=== PATIENT | male | born 1960 | race Caucasian/White ===

== ENCOUNTER 2024-08-18 03:32 | Emergency (ER) | payer OTHER, SELFPAY ==
[2024-08-18 03:46] VITALS: BP 170/98; PULSE 110; RESP 20; TEMP 36.6; O2SAT 93; BMI 25.8
[2024-08-18 04:27] LABS: Basophils # 0.1 10^3/uL (0.0-0.1); Basophils % 0.7 %; Eosinophils # 0.3 10^3/uL (0.0-0.8); Eosinophils % 3.6 %; Hematocrit 38.9 % (37-53); Lymphocytes # 2.3 10^3/uL (0.8-4.8); Lymphocytes % 24.7 %; Mean Corpuscular Hemoglobin 36.4 pg (27-33); Mean Platelet Volume 9.6 fL (7.4-10.4); Monocytes # 1.1 10^3/uL (0.2-0.9); Monocytes % 11.1 %; Neutrophils # 5.62 10^3/uL (1.8-7.7); Neutrophils % 59.7 %; Nucleated Red Blood Cells % 0 %; Platelet Count 152 10^3/cmm (157-399); Red Blood Count 3.74 10^6/uL (3.85-5.65); Red Cell Distribution Width 13.1 % (12.1-15.1); White Blood Count 9.43 10^3/uL (3.29-11.43)
[2024-08-18 04:45] LABS: Alanine Aminotransferase 47 U/L (0-41); Albumin Level 3.1 g/dL (3.5-5.2); Alkaline Phosphatase 178 U/L (40-130); Anion Gap 15.7 (5-19); Aspartate Amino Transferase 162 U/L (0-40); Blood Urea Nitrogen 4 mg/dL (8-23); Calcium 8.3 mg/dL (8.5-10.5); Carbon Dioxide 24 mmol/L (22-29); Chloride 101 mmol/L (98-107); Creatinine Clr Calc Pharmacy 129.7913; Globulin 4.2 g/dL (1.3-4.6); Glomerular Filtration Rate 136.5 mL/min (90-130); Glucose 121 mg/dL (65-115); Lipase 93 U/L (13-60); Osmolality Calculated 282 mOsm/kg (285-295); Potassium 3.7 mmol/L (3.5-5.1); Sodium 137 mmol/L (136-145); Total Bilirubin 1.7 mg/dL (0.15-1.2); Total Protein 7.3 g/dL (6.6-8.7)
[2024-08-18 05:04] LABS: INR 1.55 (0.8-1.2)
[2024-08-18 05:20] VITALS: BP 137/92; PULSE 107; RESP 17; RESP 18; O2SAT 95
[2024-08-18] MEDS: morphine 4 mg/mL SDV 1 mL IVP (05:20)
[2024-08-18] MEDS: ondansetron 2 mg/ML SDV 2 mL 4 MG IVP (05:20)
[2024-08-18 05:45] LABS: Ammonia 50 umol/L (16-60)
[2024-08-18 05:50] VITALS: BP 122/68; PULSE 113; RESP 15; O2SAT 95
[2024-08-18 06:20] VITALS: BP 136/73; PULSE 102; RESP 17; O2SAT 90
--- NOTE | 2024-08-18 06:40 | ED_ITS ---
HPI - Abdominal Pain 2 General: Chief Complaint: Abdominal Pain Stated Complaint: SOB pain bloating prior parensentisis Time Seen by Provider: 08/18/24 04:19 History of Present Illness: 64-year-old male with a history of chron ic liver disease presenting with abdominal bloating, pain. No fever. No vomiting. He had a first paracentesis 3 weeks ago at [facility]. He was significantly improved with the symptoms following that. He is hoping for another paracentesis. Related Data Previous Rx's Medication Instructions Recorded furosemide 40 mg tablet 40 mg PO DAILY #7 tabs 08/18/24 hydrocodone 5 mg-acetaminophen 325 1 tab PO Q8H PRN pain #9 tabs 08/18/24 mg tablet Physical Exam 2 Const: COMMON NORMALS: no acute distress GENERAL APPEARANCE: cooperative; not ill appearing and not frail appearing HENMT: COMMON NORMALS: normocephalic, atraumatic and Normal external nose present HEAD & SCALP: normocephalic and atraumatic FACE & SINUS: normal facial exam and face symmetric NOSE: Normal external nose present Eye: COMMON NORMALS: Equal, round and reactive pupils present and EOMs intact bilaterally PUPIL: Yes Equal, round and reactive pupils present Neck/C-Spine: GENERAL: Yes trachea midline Chest: CHEST: Yes Symmetrical chest wall rise Resp: COMMON NORMALS: normal respiratory effort, No retractions, No use of accessory muscles and clear to auscultation bilaterally AUSCULTATION: clear to auscultation bilaterally Cardio: COMMON NORMALS: regular rate and regular rhythm RATE: regular rate RHYTHM: regular rhythm GI: INSPECTION: Yes abdominal distension PALPATION: Yes Tenderness to palpation present (GI) (diffuse) and No Guarding due to palpation present (GI) Extremity: COMMON NORMALS: no pedal edema Neuro: DENA COMA SCALE: document GCS findings [place] coma scale eye opening: Spontaneous Dena coma scale verbal response: Orientated [place] coma scale motor response: Obey commands [place] coma scale total score: 15 S ENSORY EXAM: Yes extremities (intact) Psych: COMMON NORMALS: speech normal SPEECH: Yes normal speech Skin: COMMON NORMALS: no rashes or lesions noted GENERAL SKIN EXAM: no rashes or lesions noted Course 2 Vital Signs: Vital signs: Vital Signs Temperature 98 F 08/18/24 03:46 Pulse Rate 101 H 08/18/24 07:26 Respiratory Rate 17 08/18/24 06:20 Blood Pressure 122/76 08/18/24 07:26 Pulse Oximetry 98 08/18/24 07:26 MDM - Abdominal Pain Medical Decision Making This patient has been on exam. He is mildly tender. He has white blood cell count is 9.4. Platelet count is 152. Laboratories otherwise not remarkable. Lipase is minimally elevated at 93. We do not do nonemergent paracentesis on the weekend here. We have no interventional radiology. The patient will be set up for an outpatient paracentesis. Case management has been asked to coordinate. In the meantime, he will return for any worsening symptoms. Will control his pain and nausea. Lab Data 08/18/24 04:02 08/18/24 04:02 Labs/Radiology: Laboratory Results WBC 9.43 10^3/uL (3.29-11.43) 08/18/24 04:02 RBC 3.74 10^6/uL (3.85-5.65) L 08/18/24 04:02 Hgb 13.60 g/dL (11.27-16.99) 08/18/24 04:02 Hct 38.9 % (37-53) 08/18/24 04:02 MCV 104.0 fl (82-101) H 08/18/24 04:02 MCH 36.4 pg (27-33) H 08/18/24 04:02 MCHC 35.0 g/dL (30-55) 08/18/24 04:02 RDW 13.1 % (12.1-15.1) 08/18/24 04:02 Plt Count 152 10^3/cmm (157-399) L 08/18/24 04:02 MPV 9.6 fL (7.4-10.4) 08/18/24 04:02 Neut % (Auto) 59.7 % 08/18/24 04:02 Lymph % (Auto) 24.7 % 08/18/24 04:02 [place] % (Auto) 11.1 % 08/18/24 04:02 Eos % (Auto) 3.6 % 08/18/24 04:02 Baso % (Auto) 0.7 % 08/18/24 04:02 Neut # (Auto) 5.62 10^3/uL (1.8-7.7) 08/18/24 04:02 Lymph # (Auto) 2.3 10^3/uL (0.8-4.8) 08/18/24 04:02 [place] # (Auto) 1.1 10^3/uL (0.2-0.9) H 08/18/24 04:02 Eos # (Auto) 0.3 10^3/uL (0.0-0.8) 08/18/24 04:02 Baso # (Auto) 0.1 10^3/uL (0.0-0.1) 08/18/24 04:02 Nucleated RBC % (auto) 0 % 08/18/24 04:02 Nucleated RBCs # 0.0 /100WBC 08/18/24 04:02 PT 19.10 SECONDS (12.1-14.9) H 08/18/24 04:08 INR 1.55 (0.8-1.2) H 08/18/24 04:08 Sodium 137 mmol/L (136-145) 08/18/24 04:02 Potassium 3.7 mmol/L (3.5-5.1) 08/18/24 04:02 Chloride 101 mmol/L (98-107) 08/18/24 04:02 Carbon Dioxide 24 mmol/L (22-29) 08/18/24 04:02 Anion Gap 15.7 (5-19) 08/18/24 04:02 BUN 4 mg/dL (8-23) L 08/18/24 04:02 Creatinine 0.6 mg/dL (0.7-1.2) L 08/18/24 04:02 GFR Calculation 136.5 mL/min (90-130) H 08/18/24 04:02 Glucose 121 mg/dL (65-115) H 08/18/24 04:02 Calculated Osmolality 282 mOsm/kg (285-295) L 08/18/24 04:02 Calcium 8.3 mg/dL (8.5-10.5) L 08/18/24 04:02 Total Bilirubin 1.7 mg/dL (0.15-1.2) H 08/18/24 04:02 AST 162 U/L (0-40) H 08/18/24 04:02 ALT 47 U/L (0-41) H 08/18/24 04:02 Alkaline Phosphatase 178 U/L (40-130) H 08/18/24 04:02 Ammonia 50 umol/L (16-60) 08/18/24 05:15 Total Protein 7.3 g/dL (6.6-8.7) 08/18/24 04:02 Albumin 3.1 g/dL (3.5-5.2) L 08/18/24 04:02 Globulin 4.2 g/dL (1.3-4.6) 08/18/24 04:02 Lipase 93 U/L (13-60) H 08/18/24 04:02 Urine Color Dark yellow (Yellow) A 08/18/24 05:13 Urine Appearance Clear (CLEAR) 08/18/24 05:13 Urine pH 6.0 (5-7) 08/18/24 05:13 Ur Specific [place] 1.025 (1.005-1.030) 08/18/24 05:13 Urine Protein Trace (Negative) A 08/18/24 05:13 Urine Glucose (UA) Negative (Normal) 08/18/24 05:13 Urine Ketones 1+ (Negative) H 08/18/24 05:13 Urine Blood Negative (Negative) 08/18/24 05:13 Urine Nitrate Negative (Negative) 08/18/24 05:13 Urine Bilirubin 1+ (Negative) H 08/18/24 05:13 Urine Urobilinogen 1.0 mg/dL (Negative) 08/18/24 05:13 Ur Leukocyte Esterase Trace (Negative) A 08/18/24 05:13 Urine RBC None /hpf (0-2) 08/18/24 05:13 Urine WBC 0-4 /hpf (0-5) H 08/18/24 05:13 Ur Squamous Epith Cells None /hpf (0-5) 08/18/24 05:13 Calcium Oxalate Crystal 5-10 /hpf H 08/18/24 05:13 Amorphous Sediment Not Reportable 08/18/24 05:13 Urine Bacteria Trace /hpf (NONE) 08/18/24 05:13 Urine Mucus 2+ /hpf 08/18/24 05:13 All radiology interpretation(s) finalized by discharge Discharge Plan Discharge Patient Disposition: Home Clinical Impression: Abdominal pain, Abdominal ascites, Chronic liver disease Condition: Stable Prescriptions: New hydrocodone-acetaminophen 5-325 mg tablet 1 tab PO Q8H PRN (Reason: pain) Qty: 9 0RF furosemide 40 mg tablet 40 mg PO DAILY Qty: 7 0RF Discharge Orders: Discharge ED (Routine); Ordered 08/18/24 Ordered By: Osmany Louis Referrals: Nacho Nance [Primary Care Provider] - 4-7 days Patient Instructions: Abdominal Pain (ED), Opioid Safety, Pain Management Activity Restrictions/Additional Instructions: Case management has been asked to schedule you an outpatient ultrasound-guided paracentesis. You should get a call from them on Tuesday afternoon letting you know when you can get this done. In the meantime, take medication as directed. Return for development of fever, worsening mental status, worsening pain despite treatment, other concerning symptoms. Coding Level of Care Code ED Senior Commissions Analyst for Milka Stoddard
[2024-08-18 07:26] VITALS: BP 122/76; PULSE 101; O2SAT 98
[2024-08-18 07:33] LABS: Bilirubin Urine 1+ (Negative); Blood Urine Negative (Negative); Glucose Urine UA Negative (Normal); Ketones Urine 1+ (Negative); Leukocyte Esterase Urine Trace (Negative); Nitrate Urine Negative (Negative); Protein Urine Trace (Negative); Specific Gravity, Urine 1.025 (1.005-1.030); Urine Appearance Clear (CLEAR); Urine Color Dark Yellow (Yellow)
[2024-08-18 07:36] LABS: Add Urine Microscopic? YES
[2024-08-18 07:56] LABS: UA Slide Review UA Slide Review Perf
[2024-08-18 07:57] LABS: Add Urine Culture? No; Bacteria Urine TRACE /hpf; Mucus Urine 2+ /hpf; UA Manual Slide Review YES; WBC Urine 0-4 /hpf (0-5)
== END 2024-08-18 07:26 | disposition home or self-care (01) ==
PROVIDERS: Emergency Provider Emergency Medicine; PCP Family Medicine
DX: R10.9 Unspecified abdominal pain (principal); R18.8 Other ascites; K76.89 Other specified diseases of liver
CPT/HCPCS: 80053; 81001; 82140; 83690; 85025; 85610; 96374; 96375; 99284; J2270; J2405

== ENCOUNTER 2024-10-01 11:00 | Day surgery (SDC) | payer OTHER, SELFPAY ==
--- NOTE | 2024-10-01 11:33 | US_ITS ---
WS: [id number] ULTRASOUND-GUIDED THERAPEUTIC PARACENTESIS Procedure, risks, and complications have been explained to the patient. Consent is obtained. Utilizing aseptic technique and 1% buffered lidocaine, a small dermatome was made through which a 5 F rench Yueh catheter was inserted. Approximately 8500 ml of clear peritoneal fluid was obtained witho ut difficulty. No complications encountered. US/US paracentesis abd w [id number] IMPRESSION: Uncomplicated paracentesis yielding 8500 ml of peritoneal fluid.
[2024-10-01 11:34] VITALS: BP 154/90; PULSE 104; RESP 18; TEMP 36.6; O2SAT 95; BMI 27.3
[2024-10-01 12:43] VITALS: BP 145/77; PULSE 99; RESP 18; O2SAT 95
== END 2024-10-01 12:46 | disposition home or self-care (01) ==
LOC: GILAB 11:02
PROVIDERS: Radiology Diagnostic Radiology; PCP Family Medicine; Visit Provider Nurse Practitioner Family
PROC: (CPT 49082; principal; 2024-10-01 12:00)
DX: R18.8 Other ascites (principal); K70.10 Alcoholic hepatitis without ascites; F10.10 Alcohol abuse, uncomplicated
CPT/HCPCS: 49083

== ENCOUNTER 2024-12-24 10:52 | Emergency (ER) | payer OTHER, SELFPAY ==
[2024-12-24] VITALS (10 sets, daily range): BP systolic 81–110; BP diastolic 40–80; PULSE 91–104; RESP 15–18; TEMP 36.5–36.9; O2SAT 88–100; BMI 25.0
--- NOTE | 2024-12-24 11:13 | ECG_ITS ---
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 Measurements Intervals [place] Rate: 100 P: 37 [place]: 128 QRS: 37 QRSD: 103 T: 91 QT: 359 QTc: 464 Interpretive Statements SINUS TACHYCARDIA No previous ECG available for comparison Electronically Signed On 12-24-2024 22:24:45 CDT by Rodrick Sanchez M.D. [id number]
--- NOTE | 2024-12-24 11:16 | XR_ITS ---
WS: [id number] Exam: XR chest 1V portable [id number] Date/Time of Exam: 12/24/2024 11:33 AM Reason For Exam: dyspnea/cough No previous exam. The lungs are fully expanded and clear. Normal heart size. The mediastinum is normal in contour. Bony structures are unremarkable. No pleural effusion. XR/XR chest 1V portable [id number] IMPRESSION: 1. Negative chest.
[2024-12-24] MEDS: sodium chloride 0.9% 1,000 ML 999 ML IV (11:22)
[2024-12-24] MEDS: ondansetron 2 mg/ML SDV 2 mL 4 MG IVP (11:24)
--- NOTE | 2024-12-24 11:35 | W.ED.NAVMDI ---
HPI - Nausea/Vomiting/Diarrhea General: Chief complaint: Nausea/Vomiting/Diarrhea Stated complaint: generalized weakness Time Seen by Provider: 12/24/24 11:16 History of Present Illness: 64-year-old male presents to the emergency room with nausea vomiting he has had black tarry stools last several days progressively worsening. Patient has a known history of alcoholic liver cirrhosis he is scheduled to be seen at [facility] for further evaluation and assessment he has not yet made that appointment. He does state he has stopped drinking. He has previously had upper GI bleeds and has had banding of esophageal varices per his report. Associated nausea: Yes Associated symtoms: Reports bloating and nausea; Denies chest pain or dysuria Related Data Home Medications ?Medication ?Instructions ?Recorded ?Confirmed fluticasone propionate 50 1 spray intranasal DAILY 12/24/24 12/24/24 mcg/actuation nasal spray,suspension folic acid 1 mg tablet 1 mg PO DAILY 12/24/24 12/24/24 gabapentin 100 mg capsule 100 mg PO BID 12/24/24 12/24/24 lactulose 10 gram/15 mL oral See Rx Instructions .Route .COMPLEX 12/24/24 12/24/24 solution (Constulose) naltrexone 50 mg tablet 50 mg PO BID 12/24/24 12/24/24 spironolactone 100 mg tablet 100 mg PO DAILY 12/24/24 12/24/24 thiamine HCl (vitamin B1) 100 mg 100 mg PO DAILY 12/24/24 12/24/24 tablet trazodone 50 mg tablet 50 mg PO BEDTIME 12/24/24 12/24/24 triamcinolone acetonide 0.1 % 1 applic topical BID PRN Skin 12/24/24 12/24/24 topical cream Irritation Previous Rx's ?Medication ?Instructions ?Recorded furosemide 40 mg tablet 40 mg PO DAILY #7 tabs 08/18/24 hydrocodone 5 mg-acetaminophen 325 1 tab PO Q8H PRN pain #9 tabs 08/18/24 mg tablet Allergies Allergy/AdvReac Type Severity Reaction Status Date / Time losartan Allergy Unknown Verified 10/01/24 10:14 Review of Systems Const: Denies: fever(s) or chills Card: Denies: chest pain Resp: Denies: dyspnea GI: Reports: abdominal pain, nausea, vomiting, bloating, GI cramping and melena : Denies: dysuria, urinary frequency or urinary urgency Musc: Denies: neck pain or back pain Skin/Breast: Denies: rash Physical Exam Const: GENERAL APPEARANCE: cooperative ORIENTATION/CONSCIOUSNESS: Yes awake, Yes oriented to person, Yes oriented to place and Yes oriented to time HENMT: COMMON NORMALS: normocephalic, atraumatic and hearing grossly normal bilaterally HEAD & SCALP: normocephalic and atraumatic Resp: COMMON NORMALS: normal respiratory effort, No retractions, No use of accessory muscles and clear to auscultation bilaterally AUSCULTATION: clear to auscultation bilaterally Cardio: COMMON NORMALS: regular rate, regular rhythm and No murmurs present (Cardio) RATE: regular rate RHYTHM: regular rhythm GI: INSPECTION: Yes abdominal distension and Yes Fluid wave present AUSCULTATION: Yes normoactive bowel sounds PALPATION: Yes Tenderness to palpation present (GI) (Diffuse), No Guarding due to palpation present (GI), Yes Hepatomegaly present and Yes Ascites present PERCUSSION: dullness to percussion and Fluid wave present RECTAL EXAM: Yes heme positive stool (Sharply positive Hemoccult, melanotic stool) Extremity: COMMON NORMALS: normal to inspection, capillary refill normal, no clubbing, cyanosis or edema, no calf tenderness and no pedal edema Neuro: SENSORIUM/ORIENTATION: Yes oriented to person, Yes oriented to place and Yes oriented to time Skin: COMMON NORMALS: no rashes or lesions noted GENERAL SKIN EXAM: no rashes or lesions noted Course Vital Signs: Vital signs: Vital Signs Temperature 98.4 F 12/24/24 17:19 Pulse Rate 91 12/24/24 17:19 Respiratory Rate 15 12/24/24 17:19 Blood Pressure 99/80 12/24/24 17:19 Pulse Oximetry 92 12/24/24 16:55 Oxygen Delivery Me thod Room Air 12/24/24 16:17 Oxygen Flow Rate 2 12/24/24 10:58 MDM - Nausea/Vomiting/Diarrhea Medical Decision Making Discussed with hospital and surgeon recommend transfer transfer to [facility] in [place]. Patient has been started on blood transfusion hemoglobin is 4.4 we have also ordered fresh frozen plasma and albumin. Paracentesis was done to collect fluid for cultures been started on ceftriaxone he is also started on octreotide. Discussed with the ER docs accept him on ER to ER transfer. Transferred by [facility] ambulance. Medical Records I reviewed the patient's medical records. Lab Data I reviewed the patient's lab results. 12/24/24 12:07 12/24/24 12:07 Radiology Impressions Chest X-Ray 12/24/24 11:16 IMPRESSION: 1. Negative chest. Paracentesis Ultrasound 12/24/24 12:20 IMPRESSION: Uncomplicated paracentesis yielding 7600 ml of peritoneal fluid. Laboratory Results WBC 13.55 10^3/uL (3.29-11.43) H 12/24/24 12:07 RBC 1.13 10^6/uL (3.85-5.65) L 12/24/24 12:07 Hgb 4.40 g/dL (11.27-16.99) L* 12/24/24 12:07 Hct 13.1 % (37-53) L* 12/24/24 12:07 MCV 115.9 fl (82-101) H 12/24/24 12:07 MCH 38.9 pg (27-33) H 12/24/24 12:07 MCHC 33.6 g/dL (30-55) 12/24/24 12:07 RDW 18.6 % (12.1-15.1) H 12/24/24 12:07 Plt Count 182 10^3/cmm (157-399) 12/24/24 12:07 MPV 10.3 fL (7.4-10.4) 12/24/24 12:07 Neut % (Auto) 67.1 % 12/24/24 12:07 Lymph % (Auto) 15.1 % 12/24/24 12:07 [place] % (Auto) 16.6 % 12/24/24 12:07 Eos % (Auto) 0.1 % 12/24/24 12:07 Baso % (Auto) 0.1 % 12/24/24 12:07 Neut # (Auto) 9.08 10^3/uL (1.8-7.7) H 12/24/24 12:07 Lymph # (Auto) 2.1 10^3/uL (0.8-4.8) 12/24/24 12:07 [place] # (Auto) 2.3 10^3/uL (0.2-0.9) H 12/24/24 12:07 Eos # (Auto) 0.0 10^3/uL (0.0-0.8) 12/24/24 12:07 Baso # (Auto) 0.0 10^3/uL (0.0-0.1) 12/24/24 12:07 Nucleated RBC % (auto) 0.4 % 12/24/24 12:07 Nucleated RBCs # 0.1 /100WBC 12/24/24 12:07 Differential Comment Yes 12/24/24 15:20 PT 26.90 SECONDS (12.1-14.9) H 12/24/24 12:07 INR 2.33 (0.8-1.2) H 12/24/24 12:07 Sodium 129 mmol/L (136-145) L 12/24/24 12:07 Potassium 4.5 mmol/L (3.5-5.1) 12/24/24 12:07 Chloride 94 mmol/L (98-107) L 12/24/24 12:07 Carbon Dioxide 24 mmol/L (22-29) 12/24/24 12:07 Anion Gap 15.5 (5-19) 12/24/24 12:07 BUN 56 mg/dL (8-23) H 12/24/24 12:07 Creatinine 1.0 mg/dL (0.7-1.2) 12/24/24 12:07 GFR Calculation 75.7 mL/min (90-130) L 12/24/24 12:07 Glucose 125 mg/dL (65-115) H 12/24/24 12:07 Calculated Osmolality 285 mOsm/kg (285-295) 12/24/24 12:07 Calcium 8.3 mg/dL (8.5-10.5) L 12/24/24 12:07 Total Bilirubin 2.5 mg/dL (0.15-1.2) H 12/24/24 12:07 AST 58 U/L (0-40) H 12/24/24 12:07 ALT 30 U/L (0-41) 12/24/24 12:07 Alkaline Phosphatase 53 U/L (40-130) 12/24/24 12:07 Ammonia 28 umol/L (16-60) 12/24/24 12:07 Creatine Kinase 42 U/L (39-308) 12/24/24 12:07 Total Protein 4.9 g/dL (6.6-8.7) L 12/24/24 12:07 Albumin 2.4 g/dL (3.5-5.2) L 12/24/24 12:07 Globulin 2.5 g/dL (1.3-4.6) 12/24/24 12:07 Lipase 93 U/L (13-60) H 12/24/24 12:07 Fluid Color Yellow 12/24/24 15:20 Fluid Appearance Cloudy 12/24/24 15:20 Fluid Specific Grav 1.013 12/24/24 15:20 Fluid pH 7.5 12/24/24 15:20 Fluid WBC 70 /uL 12/24/24 15:20 Fluid RBC 0 10^3/uL 12/24/24 15:20 Fld Polynuclear WBCs # 0.004 12/24/24 15:20 Fld Polynuclear WBCs % 5.700 % 12/24/24 15:20 Fl Mononucl WBCs #(Auto) 0.066 12/24/24 15:20 Fl Mononuclear % Auto 94.300 % 12/24/24 15:20 Fld Crystal Laterality Peritoneal fluid 12/24/24 15:20 Fluid Glucose 141.0 mg/dL 12/24/24 15:20 Fluid Total Protein 1.2 g/dL 12/24/24 15:20 Fluid Albumin 0.7 g/dL 12/24/24 15:20 Fluid LDH 90 U/L 12/24/24 15:20 Fluid Alk Phosphatase 6 IU/L 12/24/24 15:20 Fluid Cholesterol 29 mg/dL (0-200) 12/24/24 15:20 Fluid Triglycerides 12 mg/dL (0-150) 12/24/24 15:20 Fluid Uric Acid 6 mg/dL 12/24/24 15:20 Pleural Amylase Cancelled 12/24/24 15:20 Influenza A (PCR) Negative (Negative) 12/24/24 11:21 Influenza Type B (PCR) Negative (Negative) 12/24/24 11:21 RSV (PCR) Negative (Negative) 12/24/24 11:21 SARS-CoV-2 (PCR) Negative (Negative) 12/24/24 11:21 Blood Type A Positive 12/24/24 13:43 Rho(D) Type Rh positive 12/24/24 13:43 Antibody Screen Negative 12/24/24 13:43 Crossmatch See Detail 12/24/24 13:43 All radiology interpretation(s) finalized by discharge Critical Care Time Critical Care Time: Critical Care Time: Yes Total Critical Care Time: 45 Attestation: The high probability of a clinically significant, sudden or life threatening deterioration of the patient's cardiovascular GI system(s) required my full and direct attention, intervention and personal management. The critical care time is as shown. This time is in addition to time spent performing any reported procedures but includes the following: [x] Data and vital sign review and interpretation [x] Patient assessment, examination and intervention [x] Documentation [x] Medication orders and management Discharge Plan Discharge Patient Disposition: Transfer to ED Clinical Impression: Acute anemia, Liver cirrhosis, Esophageal varices, Scleral icterus Condition: Stable Prescriptions: No Action hydrocodone-acetaminophen 5-325 mg tablet 1 tab PO Q8H PRN (Reason: pain) Qty: 9 0RF furosemide 40 mg tablet 40 mg PO DAILY Qty: 7 0RF triamcinolone acetonide 0.1 % cream 1 applic TOPICAL BID PRN (Reason: Skin Irritation) lactulose [Constulose] 10 gram/15 mL solution See Rx Instructions .ROUTE .COMPLEX Rx Instructions: TAKE 30 ML BY MOUTH TWO TIMES DAILY NEEDED FOR CONSTIPATION OR ELEVATED AMMONIA. trazodone 50 mg tablet 50 mg PO BEDTIME naltrexone 50 mg tablet 50 mg PO BID spironolactone 100 mg tablet 100 mg PO DAILY thiamine HCl (vitamin B1) 100 mg tablet 100 mg PO DAILY folic acid 1 mg tablet 1 mg PO DAILY gabapentin 100 mg capsule 100 mg PO BID fluticasone propionate 50 mcg/actuation spray,suspension 1 spray INTRANASAL DAILY Referrals: aNcho Nance [Primary Care Provider] - Print Language: Kazakh Coding Level of Care Code ED Conditioner Tumbler for Milka Stoddard
[2024-12-24 12:10] LABS: Influenza A NEGATIVE (Negative); Influenza B NEGATIVE (Negative); Respiratory Syncytial Virus Ce NEGATIVE (Negative); SARS-CoV-2 PCR NEGATIVE (Negative)
--- NOTE | 2024-12-24 12:20 | US_ITS ---
WS: [id number] ULTRASOUND-GUIDED THERAPEUTIC AND DIAGNOSTIC PARACENTESIS Procedure, risks, and complications have been explained to the patient. Consent is obtained. Utilizing aseptic technique and 1% buffered lidocaine, a small dermatome was made through which a 5 [place] Yueh catheter was inserted. Approximately 7600 ml of clear peritoneal fluid was obtained without difficulty. No complications encountered. US/US paracentesis abd w [id number] IMPRESSION: Uncomplicated paracentesis yielding 7600 ml of peritoneal fluid.
[2024-12-24 12:33] LABS: INR 2.33 (0.8-1.2)
[2024-12-24 12:41] LABS: Alanine Aminotransferase 30 U/L (0-41); Albumin Level 2.4 g/dL (3.5-5.2); Alkaline Phosphatase 53 U/L (40-130); Anion Gap 15.5 (5-19); Aspartate Amino Transferase 58 U/L (0-40); Blood Urea Nitrogen 56 mg/dL (8-23); Calcium 8.3 mg/dL (8.5-10.5); Carbon Dioxide 24 mmol/L (22-29); Chloride 94 mmol/L (98-107); Creatine Phosphokinase 42 U/L (39-308); Creatinine Clr Calc Pharmacy 74.4142; Globulin 2.5 g/dL (1.3-4.6); Glomerular Filtration Rate 75.7 mL/min (90-130); Glucose 125 mg/dL (65-115); Lipase 93 U/L (13-60); Osmolality Calculated 285 mOsm/kg (285-295); Potassium 4.5 mmol/L (3.5-5.1); Sodium 129 mmol/L (136-145); Total Bilirubin 2.5 mg/dL (0.15-1.2); Total Protein 4.9 g/dL (6.6-8.7)
[2024-12-24 12:43] LABS: Basophils % 0.1 %; Eosinophils % 0.1 %; Lymphocytes # 2.1 10^3/uL (0.8-4.8); Lymphocytes % 15.1 %; Mean Corpuscular HGB Conc 33.6 g/dL (30-55); Mean Corpuscular Hemoglobin 38.9 pg (27-33); Mean Corpuscular Volume 115.9 fl (82-101); Mean Platelet Volume 10.3 fL (7.4-10.4); Monocytes # 2.3 10^3/uL (0.2-0.9); Monocytes % 16.6 %; Neutrophils # 9.08 10^3/uL (1.8-7.7); Neutrophils % 67.1 %; Nucleated Red Blood Cells # 0.1 /100WBC; Nucleated Red Blood Cells % 0.4 %; Platelet Count 182 10^3/cmm (157-399); Red Blood Count 1.13 10^6/uL (3.85-5.65); Red Cell Distribution Width 18.6 % (12.1-15.1); White Blood Count 13.55 10^3/uL (3.29-11.43)
[2024-12-24 12:44] LABS: Ammonia 28 umol/L (16-60)
[2024-12-24 12:48] LABS: Hematocrit 13.1 % (37-53)
--- NOTE | 2024-12-24 13:16 | PC.PHAR ---
Pt states has not taken any medications since Tuesday of last week. Pt did not know his medications. Med rec completed with pts' current [facility] list and [facility] mail order pharmacy with last fill dates and day supply.
[2024-12-24] MEDS: pantoprazole 40 mg SDV 80 MG IVP (13:50)
--- NOTE | 2024-12-24 15:14 | P.CONIM_ITS ---
Providers/Reason For Consult 2 Consulting Physician/Specialty*: Internal Medicine/ Brionna dee MD Reason for Consult*: Upper GI bleed Attending Physician: Brionna Dee MD Primary Care Provider: Nacho Nance History of Present Illness History of Present Illness Kamron Mondragon is a 64 year old male With past medical history of alcoholic liver cirrhosis esophageal variceal banding done July 02, 2024, multiple paracentesis as an outpatient presented to the hospital today with complaints of dehydration vomiting since Tuesday. Patient is not even tolerating clear liquids. He states whenever he eats he vomits right away. He denies any hematemesis at this time however has been having black tarry stools for last few days. He feels so weak and dehydrated asking for water and ice chips. Also complains of mild abdominal pain and distention. He has been having bad hiccups. Also complains of a mild fever. Rest of information was obtained from the as patient stated he would like for me to talk to his spouse. Called over the phone. Her name is Zoë. She states that patient was newly diagnosed with all of the above cirrhosis varices in June 2024. Their main complaint of going to the hospital was bloating and enlarged abdomen after which they were diagnosed with abdominal ascites liver cirrhosis and at that admission he had black tarry stools for which EGD was pursued. They have an upcoming appointment with gastroenterology [facility] Dr. Canas for follow-up EGD. At home he is on spironolactone trazodone Lasix gabapentin and lactulose. However he has not taking his medications for the last 3 to 4 days secondary to vomiting. At this time patient is alert oriented x 3 knows he is in the hospital and [email or web address] is the president and it is the year 2024. He states he feels kind of cold. He is currently having paracentesis performed. 2.5 L has been removed so far. Patient is slightly tachycardic with heart rate 101-105. Blood pressure 106/41. Saturating 98% on 2 L nasal cannula. Does have scleral icterus. Medications/Allergies Home Medications ?Medication ?Instructions ?Recorded ?Confirmed ?Last Taken ?Type furosemide 40 mg tablet 40 mg PO DAILY #7 tabs 08/1812/24/24 12/19/24 Rx hydrocodone 5 mg-acetaminophen 325 1 tab PO Q8H PRN pa in #9 tabs 08/18/24 12/24/24 09/30/24 Rx mg tablet fluticasone propionate 50 1 spray intranasal DAILY 04/1212/24/24 Unknown History mcg/actuation nasal spray,suspension folic acid 1 mg tablet 1 mg PO DAILY 12/24/2412/2412/19/24 History gabapentin 100 mg capsule 100 mg PO BID 12/24/2412/2412/19/24 History lactulose 10 gram/15 mL oral See Rx Instructions .Rout e .COMPLEX 12/24/24 12/24/24 Unknown History solution (Constulose) naltrexone 50 mg tablet 50 mg PO BID 12/24/2412/19/24 History spironolactone 100 mg tablet 100 mg PO DAILY 12/24/24 12/24/24 12/19/24 History thiamine HCl (vitamin B1) 100 mg 100 mg PO DAILY 12/2412/24/24 12/19/24 History tablet trazodone 50 mg tablet 50 mg PO BEDTIME 12/24/2412/19/24 History triamcinolone acetonide 0.1 % 1 applic topical BID PRN Skin 12/24/24 12/24/24 Unknown History topical cream Irritation Allergies Allergy/AdvReac Type Severity Reaction Status Date / Time losartan Allergy Unknown Verified 10/01/24 10:14 Vitals/I&O/Wt Last Vital Signs Temp 97.7 F 12/24/24 10:58 Pulse 101 H 12/24/24 15:00 Resp 16 12/24/24 15:00 BP 106/41 12/24/24 15:00 Pulse Ox 98 12/24/24 15:00 O2 Del Method Room Air 12/24/24 14:29 O2 Flow Rate 2 12/24/24 10:58 12/24/24 12/24/24 12/24/24 06:59 14:59 22:59 Intake Total 1000 / 1000 Balance 1000 / 1000 Weight last 48 hrs Weight 72.575 kg Physical Exam 2 Narrative: General: Alert oriented x3, patient seen laying in bed his left side with paracentesis catheter in place. HEENT: Normocephalic, atraumatic, EOMI, breathing 2 L nasal cannula. Scleral icterus present. Cardio: Sinus tachycardia, normal S1-S2 Respiratory:. Auscultation bilaterally no wheezes no rhonchi. GI: Abdomen soft, distended most likely secondary to ascites, generally nontender to palpation with left side being slightly tender. No guarding or rebound tenderness. Behavior: Appropriate and cooperative Extremities: No edema bilateral lower extremities Data 12/24/24 12:07 12/24/24 12:07 A&P Assessment and plan (1) Liver cirrhosis: (2) Acute anemia: (3) Dehydration: (4) Abdominal ascites: (5) Chronic liver disease: (6) Abdominal pain: (7) Esophageal varices: (8) Scleral icterus: (9) Tachycardia: Plan #Upper GI bleed, black tarry stools #Acute anemia hemoglobin 4.4 on arrival #Dehydration, vomiting #Known alcoholic liver cirrhosis #History of esophageal variceal banding July 02, 2025 #Abdominal ascites ? Keep n.p.o. ? Placed on normal saline 100 cc/h ? Check blood cultures ? Ordered ceftriaxone 2 g IV x 1. ? Check paracentesis and order fluid analysis to cover for SBP ? Patient had patient had esophageal banding esophageal variceal banding and June 2025. He has known liver cirrhosis. Patient's anemia today with hemoglobin 4.4 and black tarry stools is more than likely secondary to esophageal varices. Currently her hospital does not have gastroenterology services and we do not have capabilities for esophageal variceal banding. Discussed with general surgeon on-call. He can do a diagnostic EGD however will not be able to perform any intervention. At this point discussed with patient's , ER doctor and surgeon it would be patient's best interest to be transferred to a facility with gastroenterology services available. ?Placed on Protonix 40 IV twice daily -Continue n.p.o. status ? Check CBC CMP in a.m. ? Order type and screen ? Order 2 unit packed RBC check CBC 2 hours posttransfusion. ? Hemoglobin goal transfuse less than 7. ? I recommend transfer to facility with gastroenterology services.Pt's updated over the phone as well -Discussed all of the above with ER doctor who is in agreement. Full code AT prophylaxis: SCDs PDMP PDMP Reviewed: Not Reviewed Consult Attestations 2 Medical Necessity Statement: Recommend transfer to facility with GI services Diagnoses Liver cirrhosis K74.60 Acute anemia D64.9 Dehydration E86.0 Abdominal ascites R18.8 Chronic liver disease K76.9 Abdominal pain R10.9 Esophageal varices I85.00 Scleral icterus R17 Tachycardia R00.0
--- NOTE | 2024-12-24 15:43 | PM.CONSULT ---
Providers/Reason For Consult Consulting Physician/Specialty*: Dr. Short General Surgery Reason for Consult*: GI bleed Primary Care Provider: Nacho Nance History of Present Illness History of Present Illness Kamron Mondragon is a 64 year old male with history of cirrhosis who presents with acute anemia and melena. General surgery consulted for possible scoping. Patient recently had esophageal varices banding. Patient has a GI doctor. Medications/Allergies Home Medications ?Medication ?Instructions ?Recorded ?Confirmed ?Last Taken ?Type furosemide 40 mg tablet 40 mg PO DAILY #7 tabs 08/18/24 12/24/24 12/19/24 Rx hydrocodone 5 mg-acetaminophen 325 1 tab PO Q8H PRN pain #9 tabs 08/18/24 12/24/24 09/30/24 Rx mg tablet fluticasone propionate 50 1 spray intranasal DAILY 12/24/24 12/24/24 Unknown History mcg/actuation nasal spray,suspension folic acid 1 mg tablet 1 mg PO DAILY 12/24/24 12/24/24 12/19/24 History gabapentin 100 mg capsule 100 mg PO BID 12/24/24 12/24/24 12/19/24 History lactulose 10 gram/15 mL oral See Rx Instructions .Route .COMPLEX 12/24/24 12/24/24 Unknown History solution (Constulose) naltrexone 50 mg tablet 50 mg PO BID 12/24/24 12/24/24 12/19/24 History spironolactone 100 mg tablet 100 mg PO DAILY 12/24/24 12/24/24 12/19/24 History thiamine HCl (vitamin B1) 100 mg 100 mg PO DAILY 12/24/24 12/24/24 12/19/24 History tablet trazodone 50 mg tablet 50 mg PO BEDTIME 12/24/24 12/24/24 12/19/24 History triamcinolone acetonide 0.1 % 1 applic topical BID PRN Skin 12/24/24 12/24/24 Unknown History topical cream Irritation Allergies Allergy/AdvReac Type Severity Reaction Status Date / Time losartan Allergy Unknown Verified 10/01/24 10:14 Vitals/I&O/Wt Last Vital Signs Temp 98.2 F 12/24/24 15:40 Pulse 99 12/24/24 15:40 Resp 18 12/24/24 15:40 BP 104/79 12/24/24 15:40 Pulse Ox 100 12/24/24 15:40 O2 Del Method Room Air 12/24/24 14:29 O2 Flow Rate 2 12/24/24 10:58 12/24/24 12/24/24 12/24/24 06:59 14:59 22:59 Intake Total 1000 / 1000 0 / 1000 Balance 1000 / 1000 0 / 1000 Weight last 48 hrs Weight 160 lb Physical Exam Narrative: Chest: Unlabored breathing room air. No lymphadenopathy. Heart: Regular rate and rhythm. Abdomen: Soft, nontender, distended Data 12/24/24 12:07 12/24/24 12:07 A&P Assessment and plan (1) Esophageal varices: Plan 64-year-old male who presented with acute edema and melanotic stools. Known cirrhotic. Recently had esophageal variceal banding. Discussed with hospitalist. Patient being transferred to higher level of care for evaluation by GI and possible esophageal varices banding. I do not have the capabilities in our institution to perform esophageal banding. I agree with plan. PDMP PDMP Reviewed: Not Reviewed Coding Level of Care Code 14029 Diagnoses Esophageal varices I85.00
[2024-12-24] MEDS: sodium chloride 0.9% 100 mL Bag 50 ML IV (16:03)
[2024-12-24 16:11] LABS: Body Fluid Polynuclear #Cells 0.004; Body Fluid WBC 70 /uL; Monocytes # Body Fluid 0.066; RBC, Body Fluid 0 10^3/uL
[2024-12-24 16:28] LABS: Apprearance, Body Fluid CLOUDY; Color, Body Fluid YELLOW
[2024-12-24 16:29] LABS: Cyto Order Verification Order Verified; PATH Referral YES
[2024-12-24 16:30] LABS: Fluid Laterality Peritoneal Fluid
[2024-12-24] MEDS: octreotide 100 mcg/mL SDV 50 MCG IVP (16:36)
[2024-12-24] MEDS: cefTRIAXone 2,000 mg SDV 2000 MG IVP (16:38)
[2024-12-24 16:43] LABS: Albumin Body Fluid 0.7 g/dL; Cholesterol Body Fluid 29 mg/dL (0-200); Fluid Alkaline Phos. 6 IU/L; LDH Body Fluid 90 U/L; Total Protein Body Fluid 1.2 g/dL
[2024-12-24 16:44] LABS: Triglycerides Body Fluid 12 mg/dL (0-150)
[2024-12-24] MEDS: albumin 50 G/200 ML BAG 60 G IV (16:51)
[2024-12-24] MEDS: sodium chloride 0.9% 1,000 ML 100 ML IV (16:53)
[2024-12-24 17:26] LABS: Body Fluid Specific Gravity 1.013; pH Body Fluid 7.5
[2024-12-24 17:35] LABS: Uric Acid Body Fluid 6 mg/dL
== END 2024-12-24 18:01 ==
PROVIDERS: Internal Medicine; Emergency Provider Family Medicine; PCP Family Medicine
DX: D64.9 Anemia, unspecified (principal); K74.60 Unspecified cirrhosis of liver; I85.10 Secondary esophageal varices without bleeding
CPT/HCPCS: 36415; 36430; 49083; 71045; 80053; 80503; 82042; 82140; 82150; 82465; 82550; 82945; 83615; 83690; 83986; 84075; 84157; 84315; 84478; 84560; 85025; 85610; 86850; 86900; 86920; 87015; 87040; 87070; 87075; 87116; 87205; 87206; 87637; 87801; 88305; 89050; 93005; 96361; 96374; 96375; 99285; J0696; J2354; J2405; J2470; J7030; P9016; P9046

== ENCOUNTER 2025-01-03 11:16 | Day surgery (SDC) | payer OTHER, SELFPAY ==
--- NOTE | 2025-01-03 11:41 | US_ITS ---
WS: [email or web address] ULTRASOUND-GUIDED PARACENTESIS CLINICAL INFORMATION: Alcoholic cirrhosis of liver with ascites COMPARISON: None. Procedure Informed consent: The risks, benefits, and alternatives of the procedure were discussed with the patient. Verbal and written consent was obtained. Timeout: A timeout was performed to confirm the correct patient, procedure, and site. Preparation: A suitable skin site was identified. The patient was prepped and draped in usual sterile fashion. Lidocaine 1% was used for local anesthesia. Catheter: 4 Polish One-step [place] catheter. Side: LEFT lower quadrant. Fluid Volume: 8000 ml Color: Clear yellow DISPOSITION: Discarded safely. Complications: None. Patient disposition: Discharged from the department in stable condition. US/US paracentesis abd w [id number] IMPRESSION: Uncomplicated ultrasound-guided paracentesis. Removal of 8000 cc
[2025-01-03 11:47] VITALS: BP 106/66; PULSE 86; RESP 18; TEMP 36.4; O2SAT 97
[2025-01-03 12:06] VITALS: BMI 24.9
[2025-01-03] MEDS: albumin 50 G/200 ML BAG 60 G IV (13:05)
== END 2025-01-03 13:34 | disposition home or self-care (01) ==
PROVIDERS: Radiology Neuroradiology; PCP Family Medicine; Visit Provider Family Medicine
PROC: (CPT 49082; principal; 2025-01-03 12:00)
DX: K70.31 Alcoholic cirrhosis of liver with ascites (principal); I85.00 Esophageal varices without bleeding; K76.6 Portal hypertension; K72.90 Hepatic failure, unspecified without coma; Z79.899 Other long term (current) drug therapy
CPT/HCPCS: 49083; P9046

== ENCOUNTER 2025-01-14 11:19 | Day surgery (SDC) | payer OTHER, SELFPAY ==
[2025-01-14 11:32] VITALS: BP 127/84; PULSE 98; RESP 18; TEMP 36.7; O2SAT 94; BMI 25.8
--- NOTE | 2025-01-14 11:40 | US_ITS ---
WS: [email or web address] ULTRASOUND-GUIDED PARACENTESIS CLINICAL INFORMATION: Cirrhosis of liver COMPARISON: None. Procedure Informed consent: The risks, benefits, and alternatives of the procedure were discussed with the patient. Verbal and written consent was obtained. Timeout: A timeout was performed to confirm the correct patient, procedure, and site. Preparation: A suitable skin site was identified. The patient was prepped and draped in usual sterile fashion. Lidocaine 1% was used for local anesthesia. Catheter: 4 Mongolian One-step Yueh catheter. Side: LEFT lower quadrant. Fluid Volume: 8100 ml Color: Clear yellow DISPOSITION: Discarded safely. Complications: None. Patient disposition: Discharged from the department in stable condition. US/US paracentesis abd w [id number] IMPRESSION: Uncomplicated ultrasound-guided paracentesis. Removal of 8100cc
[2025-01-14] MEDS: albumin 50 G/200 ML BAG 60 G IV (12:30)
== END 2025-01-14 13:01 | disposition home or self-care (01) ==
PROVIDERS: Radiology Neuroradiology; PCP Family Medicine; Visit Provider Family Medicine
PROC: (CPT 49082; principal; 2025-01-14 12:30)
DX: K70.31 Alcoholic cirrhosis of liver with ascites (principal); K72.90 Hepatic failure, unspecified without coma
CPT/HCPCS: 49083; 96365; P9046

== ENCOUNTER → 2025-01-21 11:23 | Day surgery (SDC) | payer OTHER, SELFPAY ==
--- NOTE | 2025-01-21 11:34 | US_ITS ---
WS: [email or web address] ULTRASOUND-GUIDED DIAGNOSTIC PARACENTESIS Procedure, risks, and complications have been explained to the patient. Consent is obtained. Utilizing aseptic technique and 1% buffered lidocaine, a small dermatome was made through which a 5 Occitan Yueh catheter was inserted. Approximately 8000 ml of clear peritoneal fluid was obtained without difficulty. No complications encountered. US/US paracentesis abd w [id number] IMPRESSION: Uncomplicated paracentesis yielding 8000 ml of peritoneal fluid.
[2025-01-21 11:47] VITALS: BMI 27.8
[2025-01-21] MEDS: albumin 50 G/200 ML VIAL IV (12:47)
--- NOTE | 2025-01-21 13:05 | PC.NURSE ---
pt rolled over to side and pulled tube out. notified. us back to man pt.
--- NOTE | 2025-01-21 13:39 | PC.NURSE ---
10 ml 1% lidocaine used for procedure
[2025-01-21 13:46] VITALS: BP 115/60; PULSE 90; RESP 18; O2SAT 98
== END ==
LOC: GILAB 11:24
PROVIDERS: Radiology Diagnostic Radiology; PCP Family Medicine; Visit Provider Family Medicine
PROC: (CPT 49082; principal; 2025-01-21 12:00)
DX: K70.31 Alcoholic cirrhosis of liver with ascites (principal)
CPT/HCPCS: 49083; 96365; P9047

== ENCOUNTER → 2025-01-28 11:18 | Day surgery (SDC) | payer OTHER, SELFPAY ==
[2025-01-28 11:28] VITALS: BP 139/67; PULSE 88; RESP 20; TEMP 36.7; O2SAT 95; BMI 27.3
--- NOTE | 2025-01-28 11:48 | US_ITS ---
WS: [email or web address] ULTRASOUND-GUIDED PARACENTESIS CLINICAL INFORMATION: ascites COMPARISON: None. Procedure Informed consent: The risks, benefits, and alternatives of the procedure were discussed with the patient. Verbal and written consent was obtained. Timeout: A timeout was performed to confirm the correct patient, procedure, and site. Preparation: A suitable skin site was identified. The patient was prepped and draped in usual sterile fashion. Lidocaine 1% was used for local anesthesia. Catheter: 4 Tamazight One-step Yueh catheter. Side: LEFT lower quadrant. Fluid Volume: 8000 ml Color: Clear yellow DISPOSITION: Discarded safely. Complications: None. Patient disposition: Discharged from the department in stable condition. US/US paracentesis abd w [id number] IMPRESSION: Uncomplicated ultrasound-guided paracentesis. Removal of 8000cc
[2025-01-28] MEDS: albumin 50 G/200 ML BAG 60 G IV (13:08)
[2025-01-28 13:20] VITALS: BP 123/71; PULSE 89; RESP 20; O2SAT 95
== END ==
LOC: GILAB 11:18
PROVIDERS: Radiology Neuroradiology; PCP Family Medicine
PROC: (CPT 49082; principal; 2025-01-28 12:30)
DX: R18.8 Other ascites (principal)
CPT/HCPCS: 49083; 96365; P9046

== ENCOUNTER 2025-02-05 11:20 | Day surgery (SDC) | payer OTHER, SELFPAY ==
--- NOTE | 2025-02-05 11:36 | US_ITS ---
WS: [email or web address] ULTRASOUND-GUIDED THERAPEUTIC PARACENTESIS Procedure, risks, and complications have been explained to the patient. Consent is obtained. Utilizing aseptic technique and 1% buffered lidocaine, a small dermatome was made through which a 5 Syrian Yueh catheter was inserted. Approximately 7400 ml of clear peritoneal fluid was obtained without difficulty. No complications encountered. US/US paracentesis abd w [id number] IMPRESSION: Uncomplicated paracentesis yielding 7400 ml of peritoneal fluid.
[2025-02-05 11:37] VITALS: BP 132/76; PULSE 93; RESP 18; TEMP 36.3; O2SAT 100; BMI 27.3
[2025-02-05] MEDS: albumin 50 G/200 ML BAG 60 G IV (13:32)
== END 2025-02-05 14:10 | disposition home or self-care (01) ==
PROVIDERS: Radiology Diagnostic Radiology; PCP Family Medicine; Visit Provider Family Medicine
PROC: (CPT 49082; principal; 2025-02-05 11:30)
DX: K70.31 Alcoholic cirrhosis of liver with ascites (principal)
CPT/HCPCS: 49083; 96365; P9046

== ENCOUNTER 2025-02-14 11:21 | Day surgery (SDC) | payer OTHER, SELFPAY ==
--- NOTE | 2025-02-14 11:35 | US_ITS ---
WS: [email or web address] ULTRASOUND-GUIDED PARACENTESIS CLINICAL INFORMATION: decompenstated hepatic cirrhosis COMPARISON: None. Procedure Informed consent: The risks, benefits, and alternatives of the procedure were discussed with the patient. Verbal and written consent was obtained. Timeout: A timeout was performed to confirm the correct patient, procedure, and site. Preparation: A suitable skin site was identified. The patient was prepped and draped in usual sterile fashion. Lidocaine 1% was used for local anesthesia. Catheter: 4 Indonesian One-step [place] catheter. Side: LEFT lower quadrant. Fluid Volume: 6500 ml Color: Clear yellow DISPOSITION: Discarded safely. Complications: None. Patient disposition: Discharged from the department in stable condition. US/US paracentesis abd w [id number] IMPRESSION: Uncomplicated ultrasound-guided paracentesis. Removal of 6500 cc
[2025-02-14 11:38] VITALS: BP 143/73; PULSE 96; RESP 20; TEMP 36.5; O2SAT 96; BMI 25.0
[2025-02-14] MEDS: albumin 50 G/200 ML BAG 60 G IV (13:43)
== END 2025-02-14 14:35 | disposition home or self-care (01) ==
LOC: GILAB 11:23
PROVIDERS: Radiology Neuroradiology; PCP Family Medicine; Visit Provider Family Medicine
PROC: (CPT 49082; principal; 2025-02-14 12:30)
DX: K70.31 Alcoholic cirrhosis of liver with ascites (principal); K72.90 Hepatic failure, unspecified without coma
CPT/HCPCS: 49083; 96365; P9046

== ENCOUNTER 2025-02-21 11:21 | Day surgery (SDC) | payer OTHER, SELFPAY ==
--- NOTE | 2025-02-21 11:23 | US_ITS ---
WS: [email or web address] ULTRASOUND-GUIDED THERAPEUTIC AND DIAGNOSTIC PARACENTESIS Procedure, risks, and complications have been explained to the patient. Consent is obtained. Utilizing aseptic technique and 1% buffered lidocaine, a small dermatome was made through which a 5 Filipino Yueh catheter was inserted. Approximately 7500 ml of clear peritoneal fluid was obtained without difficulty. No complications encountered. US/US paracentesis abd w [id number] IMPRESSION: Uncomplicated paracentesis yielding 7500 ml of peritoneal fluid.
[2025-02-21 11:49] VITALS: BP 110/63; PULSE 90; RESP 16; TEMP 36.6; O2SAT 100
[2025-02-21] MEDS: albumin 50 G/200 ML BAG 900 G IV (12:35)
== END 2025-02-21 12:58 | disposition home or self-care (01) ==
PROVIDERS: Radiology Diagnostic Radiology; PCP Family Medicine; Visit Provider Family Medicine
PROC: (CPT 49082; principal; 2025-02-21 12:30)
DX: R18.8 Other ascites (principal); K72.90 Hepatic failure, unspecified without coma; K74.60 Unspecified cirrhosis of liver
CPT/HCPCS: 49083; 96365; P9046

== ENCOUNTER 2025-02-28 11:11 | Day surgery (SDC) | payer OTHER, SELFPAY ==
[2025-02-28 11:21] VITALS: BP 119/69; PULSE 72; RESP 18; TEMP 36.4; O2SAT 97; BMI 25.8
--- NOTE | 2025-02-28 11:27 | US_ITS ---
WS: [email or web address] ULTRASOUND-GUIDED PARACENTESIS CLINICAL INFORMATION: decompensated hepatic cirrhosis COMPARISON: None. Procedure Informed consent: The risks, benefits, and alternatives of the procedure were discussed with the patient. Verbal and written consent was obtained. Timeout: A timeout was performed to confirm the correct patient, procedure, and site. Preparation: A suitable skin site was identified. The patient was prepped and draped in usual sterile fashion. Lidocaine 1% was used for local anesthesia. Catheter: 4 Zimbabwean One-step [place]eh catheter. Side: RIGHT lower quadrant. Fluid Volume: 5900 ml Color: Clear yellow DISPOSITION: Discarded safely. Complications: None. Patient disposition: Discharged from the department in stable condition. US/US paracentesis abd w [id number] IMPRESSION: Uncomplicated ultrasound-guided paracentesis. Removal of 5900 cc
[2025-02-28] MEDS: albumin 50 G/200 ML BAG 60 G IV (13:24)
== END 2025-02-28 13:54 | disposition home or self-care (01) ==
LOC: GILAB 11:12
PROVIDERS: Radiology Neuroradiology; PCP Family Medicine; Visit Provider Family Medicine
PROC: (CPT 49082; principal; 2025-02-28 12:30)
DX: K70.31 Alcoholic cirrhosis of liver with ascites (principal); K72.90 Hepatic failure, unspecified without coma
CPT/HCPCS: 49083; 96360; P9046

== ENCOUNTER → 2025-03-07 11:20 | Day surgery (SDC) | payer OTHER, SELFPAY ==
--- NOTE | 2025-03-07 11:33 | US_ITS ---
WS: [email or web address] ULTRASOUND-GUIDED THERAPEUTIC PARACENTESIS Procedure, risks, and complications have been explained to the patient. Consent is obtained. Utilizing aseptic technique and 1% buffered lidocaine, a small dermatome was made through which a 5 Bhutanese Yueh catheter was inserted. Approximately 8000 ml of clear peritoneal fluid was obtained without difficulty. No complications encountered. US/US paracentesis abd w [id number] IMPRESSION: Uncomplicated paracentesis yielding 8000 ml of peritoneal fluid.
[2025-03-07] MEDS: albumin 50 G/200 ML VIAL IV (12:17)
== END ==
LOC: GILAB 11:20
PROVIDERS: Radiology Diagnostic Radiology; PCP Family Medicine; Visit Provider Family Medicine
PROC: (CPT 49082; principal; 2025-03-07 12:00)
DX: R18.8 Other ascites (principal)
CPT/HCPCS: 49083; 96365; P9047

== ENCOUNTER 2025-03-14 11:21 | Day surgery (SDC) | payer OTHER, SELFPAY ==
--- NOTE | 2025-03-14 11:27 | US_ITS ---
WS: [email or web address] ULTRASOUND-GUIDED PARACENTESIS CLINICAL INFORMATION: Decompensated hepatic cirrhosis COMPARISON: None. Procedure Informed consent: The risks, benefits, and alternatives of the procedure were discussed with the patient. Verbal and written consent was obtained. Timeout: A timeout was performed to confirm the correct patient, procedure, and site. Preparation: A suitable skin site was identified. The patient was prepped and draped in usual sterile fashion. Lidocaine 1% was used for local anesthesia. Catheter: 4 Nauruan One-step App[place]ric[place]h catheter. Side: RIGHT Lower quadrant. Fluid Volume: 8000 ml Color: clear yellow DISPOSITION: Discarded safely. Complications: None. Patient disposition: Discharged from the department in stable condition. US/US paracentesis abd w [id number] IMPRESSION: Uncomplicated ultrasound-guided paracentesis. Removal of 8000cc
[2025-03-14 11:35] VITALS: BP 137/74; PULSE 90; RESP 18; TEMP 36.7; O2SAT 98
[2025-03-14 11:41] VITALS: BMI 25.8
[2025-03-14] MEDS: albumin 50 G/200 ML BAG 60 G IV (13:03)
== END 2025-03-14 13:35 | disposition home or self-care (01) ==
LOC: GILAB 11:21
PROVIDERS: Radiology Neuroradiology; PCP Family Medicine; Visit Provider Family Medicine
PROC: (CPT 49082; principal; 2025-03-14 12:30)
DX: K70.31 Alcoholic cirrhosis of liver with ascites (principal)
CPT/HCPCS: 49083; P9046

== ENCOUNTER 2025-03-21 11:29 | Day surgery (SDC) | payer OTHER, SELFPAY ==
[2025-03-21 11:39] VITALS: BP 123/71; PULSE 68; RESP 18; TEMP 36.2; O2SAT 93
--- NOTE | 2025-03-21 11:43 | US_ITS ---
WS: [email or web address] ULTRASOUND-GUIDED THERAPEUTIC PARACENTESIS Procedure, risks, and complications have been explained to the patient. Consent is obtained. Utilizing aseptic technique and 1% buffered lidocaine, a small dermatome was made through which a 5 Polish Yueh catheter was inserted. Approximately 8000 ml of clear peritoneal fluid was obtained without difficulty. No complications encountered. US/US paracentesis abd w [id number] IMPRESSION: Uncomplicated paracentesis yielding 8000 ml of peritoneal fluid.
[2025-03-21 11:55] VITALS: BMI 23.5
[2025-03-21] MEDS: albumin 50 G/200 ML BAG 60 G IV (12:53)
[2025-03-21 13:12] VITALS: BP 119/74; PULSE 88; RESP 16; O2SAT 100
== END 2025-03-21 13:20 | disposition home or self-care (01) ==
LOC: GILAB 11:30
PROVIDERS: Radiology Diagnostic Radiology; PCP Family Medicine; Visit Provider Family Medicine
PROC: (CPT 49082; principal; 2025-03-21 12:00)
DX: K70.31 Alcoholic cirrhosis of liver with ascites (principal); K72.90 Hepatic failure, unspecified without coma
CPT/HCPCS: 49083; 96365; P9046

== ENCOUNTER → 2025-03-28 11:05 | Day surgery (SDC) | payer OTHER, SELFPAY ==
--- NOTE | 2025-03-28 11:19 | US_ITS ---
WS: [email or web address] ULTRASOUND-GUIDED PARACENTESIS CLINICAL INFORMATION: decompensated hepatic cirrhosis COMPARISON: None. Procedure Informed consent: The risks, benefits, and alternatives of the procedure were discussed with the patient. Verbal and written consent was obtained. Timeout: A timeout was performed to confirm the correct patient, procedure, and site. Preparation: A suitable skin site was identified. The patient was prepped and draped in usual sterile fashion. Lidocaine 1% was used for local anesthesia. Catheter: 4 Israeli One-step [place]h catheter. The catheter was dislodged after approximately 2700 cc. A new catheter was inserted with additional drainage. Side: LEFT Lower quadrant. Fluid Volume: 8000 ml Color: Clear yellow DISPOSITION: Discarded safely. Complications: None. Patient disposition: Discharged from the department in stable condition. US/[place]acentesis abd w [id number] IMPRESSION: Uncomplicated ultrasound-guided paracentesis. Removal of 8000 ml
[2025-03-28 11:21] VITALS: BP 109/68; PULSE 107; RESP 16; TEMP 36.4; O2SAT 95; BMI 24.3
[2025-03-28] MEDS: albumin 50 G/200 ML BAG 60 G IV (13:52)
== END ==
LOC: GILAB 11:06
PROVIDERS: Radiology Neuroradiology; PCP Family Medicine; Visit Provider Family Medicine
PROC: (CPT 49082; principal; 2025-03-28 12:30)
DX: K74.60 Unspecified cirrhosis of liver (principal)
CPT/HCPCS: 49083; P9046

== ENCOUNTER 2025-04-04 11:30 | Day surgery (SDC) | payer OTHER, SELFPAY ==
--- NOTE | 2025-04-04 11:43 | US_ITS ---
WS: [email or web address] ULTRASOUND-GUIDED THERAPEUTIC PARACENTESIS Procedure, risks, and complications have been explained to the patient. Consent is obtained. Utilizing aseptic technique and 1% buffered lidocaine, a small dermatome was made through which a 5 Sierra Leonean Yueh catheter was inserted. Approximately 8000 ml of clear peritoneal fluid was obtained without difficulty. No complications encountered. US/US paracentesis abd w [id number] IMPRESSION: Uncomplicated paracentesis yielding 8000 ml of peritoneal fluid.
[2025-04-04 11:46] VITALS: BP 138/70; PULSE 94; RESP 16; TEMP 36.4; O2SAT 100; BMI 24.3
[2025-04-04] MEDS: albumin 50 G/200 ML BAG 60 G IV (13:18)
== END 2025-04-04 13:43 | disposition home or self-care (01) ==
LOC: GILAB 11:30
PROVIDERS: Radiology Diagnostic Radiology; PCP Family Medicine; Visit Provider Family Medicine
PROC: (CPT 49082; principal; 2025-04-04 12:00)
DX: K74.60 Unspecified cirrhosis of liver (principal)
CPT/HCPCS: 49083; 96365; P9046

== ENCOUNTER 2025-04-11 11:03 | Day surgery (SDC) | payer OTHER, SELFPAY ==
--- NOTE | 2025-04-11 11:08 | US_ITS ---
WS: [email or web address] ULTRASOUND-GUIDED PARACENTESIS CLINICAL INFORMATION: DECOMPENSATED HEPATIC CIRRHOSIS COMPARISON: None. Procedure Informed consent: The risks, benefits, and alternatives of the procedure were discussed with the patient. Verbal and written consent was obtained. Timeout: A timeout was performed to confirm the correct patient, procedure, and site. Preparation: A suitable skin site was identified. The patient was prepped and draped in usual sterile fashion. Lidocaine 1% was used for local anesthesia. Catheter: 4 Equatorial Guinean One-step [place]eh catheter. Side: RIGHT lower quadrant. Fluid Volume: 8000 ml Color: Clear yellow DISPOSITION: Discarded safely. Complications: None. Patient disposition: Discharged from the department in stable condition. US/US paracentesis abd w [id number] IMPRESSION: Uncomplicated ultrasound-guided paracentesis. Removal of 8000 cc
[2025-04-11 11:20] VITALS: BP 128/74; PULSE 87; RESP 18; TEMP 36.7; O2SAT 97
[2025-04-11 11:29] VITALS: BMI 25.0
[2025-04-11 13:08] VITALS: BP 108/68; PULSE 99; RESP 18; O2SAT 99
--- NOTE | 2025-04-11 13:36 | PC.NURSE ---
Order for Albumin 25%, 50 grams IV x 1 dose and US Aspiration Abdomen at 1110. The orders were confirmed with Rosa Chisholm. The order for the para was seen by US , but the pharmacy said they could not see the ordered. It was clearly on the computer in Room 1. Pharmacy came to the unit and verified the order also. THe medication was verified with 2 nurses: myself and Rosa Chisholm. First unit given 1245, end 1257, 2 unit 1256,ended 1306. Actually procedure ended at 1300. Out of room 1312
== END 2025-04-11 13:12 | disposition home or self-care (01) ==
LOC: GILAB 11:03
PROVIDERS: Radiology Neuroradiology; PCP Family Medicine; Visit Provider Family Medicine
PROC: (CPT 49082; principal; 2025-04-11 12:00)
DX: K74.60 Unspecified cirrhosis of liver (principal); K72.90 Hepatic failure, unspecified without coma
CPT/HCPCS: 49083; 96365

== ENCOUNTER → 2025-04-18 11:21 | Day surgery (SDC) | payer OTHER, SELFPAY ==
--- NOTE | 2025-04-18 11:34 | US_ITS ---
WS: [email or web address] ULTRASOUND-GUIDED THERAPEUTIC PARACENTESIS Procedure, risks, and complications have been explained to the patient. Consent is obtained. Utilizing aseptic technique and 1% buffered lidocaine, a small dermatome was made through which a 5 Colombian Yueh catheter was inserted. Approximately 8000 ml of clear peritoneal fluid was obtained without difficulty. No complications encountered. US/US paracentesis abd w [id number] IMPRESSION: Uncomplicated paracentesis yielding 8000 ml of peritoneal fluid.
[2025-04-18 11:39] VITALS: BP 104/57; PULSE 82; RESP 16; TEMP 36.3; O2SAT 97; BMI 23.5
[2025-04-18] MEDS: albumin 50 G/200 ML BAG 60 G IV (12:47)
== END ==
LOC: GILAB 11:22
PROVIDERS: Radiology Diagnostic Radiology; PCP Family Medicine; Visit Provider Family Medicine
PROC: (CPT 49082; principal; 2025-04-18 12:30)
DX: K74.60 Unspecified cirrhosis of liver (principal); K72.90 Hepatic failure, unspecified without coma
CPT/HCPCS: 49083; 96365; P9046

== ENCOUNTER 2025-04-25 11:20 | Day surgery (SDC) | payer OTHER, SELFPAY ==
[2025-04-25 11:34] VITALS: BP 132/77; PULSE 94; RESP 18; TEMP 36; O2SAT 97; BMI 21.9
--- NOTE | 2025-04-25 11:42 | US_ITS ---
WS: [email or web address] ULTRASOUND-GUIDED PARACENTESIS CLINICAL INFORMATION: decompensated hepatic cirrhosis Procedure Informed consent: The risks, benefits, and alternatives of the procedure were discussed with the patient. Verbal and written consent was obtained. Timeout: A timeout was performed to confirm the correct patient, procedure, and site. Preparation: A suitable skin site was identified. The patient was prepped and draped in usual sterile fashion. Lidocaine 1% was used for local anesthesia. Catheter: 4 Vietnamese One-step Yueh catheter. Side: RIGHT lower quadrant. Fluid Volume: 8000 ml Color: Clear yellow DISPOSITION: Discarded safely. Complications: None. Patient disposition: Discharged from the department in stable condition. US/US paracentesis abd w [id number] IMPRESSION: Uncomplicated ultrasound-guided paracentesis. Removal of 8000 cc
[2025-04-25] MEDS: albumin 50 G/200 ML BAG 60 G IV (12:50)
== END 2025-04-25 13:10 | disposition home or self-care (01) ==
LOC: GILAB 11:20
PROVIDERS: Radiology Neuroradiology; PCP Family Medicine; Visit Provider Family Medicine
PROC: (CPT 49082; principal; 2025-04-25 12:00)
DX: K74.69 Other cirrhosis of liver (principal)
CPT/HCPCS: 49083; P9046

== ENCOUNTER 2025-05-02 11:15 | Day surgery (SDC) | payer OTHER, SELFPAY ==
--- NOTE | 2025-05-02 11:38 | US_ITS ---
WS: [email or web address] ULTRASOUND-GUIDED 8000 PARACENTESIS Procedure, risks, and complications have been explained to the patient. Consent is obtained. Utilizing aseptic technique and 1% buffered lidocaine, a small dermatome was made through which a 5 Lithuanian Yueh catheter was inserted. Approximately 8000 ml of clear peritoneal fluid was obtained without difficulty. No complications encountered. US/US paracentesis abd w [id number] IMPRESSION: Uncomplicated paracentesis yielding 8000 ml of peritoneal fluid.
[2025-05-02 11:40] VITALS: BP 147/81; PULSE 97; RESP 18; TEMP 36.3; O2SAT 97
[2025-05-02 11:43] VITALS: BMI 23.5
[2025-05-02] MEDS: albumin 50 G/200 ML BAG 60 G IV (12:59)
== END 2025-05-02 13:14 | disposition home or self-care (01) ==
LOC: GILAB 11:16
PROVIDERS: Radiology Diagnostic Radiology; PCP Family Medicine; Visit Provider Family Medicine
PROC: (CPT 49082; principal; 2025-05-02 12:30)
DX: K74.69 Other cirrhosis of liver (principal)
CPT/HCPCS: 49083; 96365; P9046

== ENCOUNTER 2025-05-06 11:15 | Day surgery (SDC) | payer OTHER, SELFPAY ==
--- NOTE | 2025-05-06 11:24 | US_ITS ---
WS: [email or web address] ULTRASOUND-GUIDED PARACENTESIS CLINICAL INFORMATION: [place] COMPARISON: None. Procedure Informed consent: The risks, benefits, and alternatives of the procedure were discussed with the patient. Verbal and written consent was obtained. Timeout: A timeout was performed to confirm the correct patient, procedure, and site. Preparation: A suitable skin site was identified. The patient was prepped and draped in usual sterile fashion. Lidocaine 1% was used for local anesthesia. Catheter: 4 Yoruba One-step Yueh catheter. Side: LEFT lower quadrant. Fluid Volume: 8000 ml Color: Clear yellow DISPOSITION: Discarded safely. Complications: None. Patient disposition: Discharged from the department in stable condition. US/US paracentesis abd w [id number] IMPRESSION: Uncomplicated ultrasound-guided paracentesis. Removal of 8000 cc
[2025-05-06 11:35] VITALS: BP 114/69; PULSE 90; RESP 18; TEMP 36.2; O2SAT 95
[2025-05-06 11:51] VITALS: BMI 21.9
[2025-05-06 13:43] VITALS: BP 109/63; PULSE 84; RESP 18; O2SAT 98
[2025-05-06 13:52] LABS: Appearance, Peritoneal Fluid Cloudy (Clear); Color, Peritoneal Fluid Pale Yellow (Pale Yellow); Cyto Order Verification No Order; Pathology Referral Yes
[2025-05-06] MEDS: albumin 50 G/200 ML BAG 60 G IV (13:56)
[2025-05-06 14:00] LABS: Mononuclear #, Pertinoneal Fl 0.036 10^3/uL; Mononuclear %, Pertinoneal Fl 92.300 %; Polynuclear # Cells, Perit 0.003 10^3/uL; Polynuclear % Cells,Perit 7.700 %; RBC Pertioneal Fluid 0 10^3/uL; WBC Peritoneal Fluid 39 /uL
== END 2025-05-06 14:24 | disposition home or self-care (01) ==
PROVIDERS: Internal Medicine Gastroenterology; PCP Family Medicine; Visit Provider Family Medicine
PROC: (CPT 49082; principal; 2025-05-06 12:30)
DX: R18.8 Other ascites (principal)
CPT/HCPCS: 49083; 80503; 87070; 87075; 87205; 89050; 96365; P9046

== ENCOUNTER 2025-05-09 11:19 | Day surgery (SDC) | payer OTHER, SELFPAY ==
--- NOTE | 2025-05-09 11:36 | US_ITS ---
WS: [email or web address] ULTRASOUND-GUIDED PARACENTESIS CLINICAL INFORMATION: ascites COMPARISON: None. Procedure Informed consent: The risks, benefits, and alternatives of the procedure were discussed with the patient. Verbal and written consent was obtained. Timeout: A timeout was performed to confirm the correct patient, procedure, and site. Preparation: A suitable skin site was identified. The patient was prepped and draped in usual sterile fashion. Lidocaine 1% was used for local anesthesia. Catheter: 4 Hebrew One-step Yueh catheter. Side: LEFT lower quadrant. Fluid Volume: 5500 ml Color: Clear yellow DISPOSITION: Discarded safely. Complications: None. Patient disposition: Discharged from the department in stable condition. US/US paracentesis abd w [id number] IMPRESSION: Uncomplicated ultrasound-guided paracentesis. Removal of 5500 cc
[2025-05-09 11:42] VITALS: BMI 23.5
[2025-05-09 11:43] VITALS: BP 112/57; PULSE 76; RESP 16; TEMP 36.1; O2SAT 99
[2025-05-09 12:48] LABS: Appearance, Peritoneal Fluid Clear (Clear); Color, Peritoneal Fluid Yellow (Pale Yellow); Pathology Referral Yes
[2025-05-09 12:49] LABS: Cyto Order Verification No Order
[2025-05-09 12:50] LABS: Mononuclear #, Pertinoneal Fl 0.057 10^3/uL; Mononuclear %, Pertinoneal Fl 90.500 %; Polynuclear # Cells, Perit 0.006 10^3/uL; Polynuclear % Cells,Perit 9.500 %; RBC Pertioneal Fluid 0 10^3/uL; WBC Peritoneal Fluid 63 /uL
[2025-05-09] MEDS: albumin 25 G/100 ML BAG 60 G IV (13:09)
== END 2025-05-09 13:26 | disposition home or self-care (01) ==
LOC: GILAB 11:19
PROVIDERS: Radiology Neuroradiology; PCP Family Medicine; Visit Provider Internal Medicine Gastroenterology
PROC: (CPT 49082; principal; 2025-05-09 12:00)
DX: R18.8 Other ascites (principal)
CPT/HCPCS: 49083; 80503; 87070; 87075; 87205; 89050; P9046

== ENCOUNTER 2025-05-13 11:38 | Day surgery (SDC) | payer OTHER, SELFPAY ==
--- NOTE | 2025-05-13 11:42 | US_ITS ---
WS: [email or web address] ULTRASOUND-GUIDED THERAPEUTIC AND DIAGNOSTIC PARACENTESIS Procedure, risks, and complications have been explained to the patient. Consent is obtained. Utilizing aseptic technique and 1% buffered lidocaine, a small dermatome was made through which a 5 [place] Yueh catheter was inserted. Approximately 5500 ml of clear peritoneal fluid was obtained without difficulty. No complications encountered. US/US paracentesis abd w [id number] IMPRESSION: Uncomplicated paracentesis yielding 5500 ml of peritoneal fluid.
[2025-05-13 13:22] VITALS: BMI 19.5
[2025-05-13] MEDS: albumin 25 G/100 ML BAG 60 G IV (13:28)
[2025-05-13 13:30] LABS: Mononuclear #, Pertinoneal Fl 0.041 10^3/uL; Mononuclear %, Pertinoneal Fl 91.100 %; Polynuclear # Cells, Perit 0.004 10^3/uL; Polynuclear % Cells,Perit 8.900 %; RBC Pertioneal Fluid 0 10^3/uL; WBC Peritoneal Fluid 45 /uL
[2025-05-13 13:41] LABS: Cyto Order Verification No Order
[2025-05-13 13:42] LABS: Appearance, Peritoneal Fluid Hazy (Clear); Color, Peritoneal Fluid Pale Yellow (Pale Yellow)
[2025-05-13 13:43] LABS: Pathology Referral Yes
== END 2025-05-13 13:41 | disposition home or self-care (01) ==
LOC: GILAB 11:39
PROVIDERS: Radiology Diagnostic Radiology; PCP Family Medicine; Visit Provider Internal Medicine Gastroenterology
PROC: (CPT 49082; principal; 2025-05-13 13:00)
DX: R18.8 Other ascites (principal)
CPT/HCPCS: 49083; 80503; 87070; 87075; 87205; 89050; 96365; P9046

== ENCOUNTER → 2025-05-16 11:25 | Day surgery (SDC) | payer OTHER, SELFPAY ==
--- NOTE | 2025-05-16 11:39 | US_ITS ---
WS: [email or web address] ULTRASOUND-GUIDED THERAPEUTIC AND DIAGNOSTIC PARACENTESIS Procedure, risks, and complications have been explained to the patient. Consent is obtained. Utilizing aseptic technique and 1% buffered lidocaine, a small dermatome was made through which a 5 Peruvian Yueh catheter was inserted. Approximately 5000 ml of clear peritoneal fluid was obtained without difficulty. No complications encountered. US/US paracentesis abd w [id number] IMPRESSION: Uncomplicated paracentesis yielding 5000 ml of peritoneal fluid.
[2025-05-16 11:43] VITALS: BP 152/87; PULSE 88; RESP 16; TEMP 36.2; O2SAT 100; BMI 21.9
[2025-05-16 12:39] LABS: Mononuclear #, Pertinoneal Fl 0.056 10^3/uL; Mononuclear %, Pertinoneal Fl 94.900 %; Polynuclear # Cells, Perit 0.003 10^3/uL; Polynuclear % Cells,Perit 5.100 %; RBC Pertioneal Fluid 0 10^3/uL; WBC Peritoneal Fluid 59 /uL
[2025-05-16 12:55] LABS: Cyto Order Verification No Order
[2025-05-16 13:17] LABS: Appearance, Peritoneal Fluid Hazy (Clear); Color, Peritoneal Fluid Pale Yellow (Pale Yellow); Pathology Referral Yes
== END ==
PROVIDERS: Radiology Diagnostic Radiology; PCP Family Medicine; Visit Provider Internal Medicine Gastroenterology
PROC: (CPT 49082; principal; 2025-05-16 12:30)
DX: R18.8 Other ascites (principal)
CPT/HCPCS: 49083; 80503; 87070; 87075; 87205; 89050; P9047

== ENCOUNTER → 2025-05-30 11:24 | Day surgery (SDC) | payer OTHER, SELFPAY ==
--- NOTE | 2025-05-30 11:32 | US_ITS ---
WS: [email or web address] ULTRASOUND-GUIDED THERAPEUTIC AND DIAGNOSTIC PARACENTESIS Procedure, risks, and complications have been explained to the patient. Consent is obtained. Utilizing aseptic technique and 1% buffered lidocaine, a small dermatome was made through which a 5 [place]ian Yueh catheter was inserted. Approximately 8000 ml of clear peritoneal fluid was obtained without difficulty. No complications encountered. US/US paracentesis abd w [id number] IMPRESSION: Uncomplicated paracentesis yielding 8000 ml of peritoneal fluid.
[2025-05-30 11:41] VITALS: BP 141/83; PULSE 85; RESP 18; TEMP 36.6; O2SAT 99; BMI 21.9
[2025-05-30 13:09] LABS: Cyto Order Verification No Order
[2025-05-30 13:10] LABS: Mononuclear #, Pertinoneal Fl 0.027 10^3/uL; Mononuclear %, Pertinoneal Fl 93.100 %; Polynuclear # Cells, Perit 0.002 10^3/uL; Polynuclear % Cells,Perit 6.900 %; RBC Pertioneal Fluid 0 10^3/uL; WBC Peritoneal Fluid 29 /uL
[2025-05-30 13:25] LABS: Appearance, Peritoneal Fluid Cloudy (Clear); Color, Peritoneal Fluid Pale Yellow (Pale Yellow); Pathology Referral Yes
[2025-05-30] MEDS: albumin 50 G/200 ML BAG 60 G IV (13:38)
== END ==
LOC: GILAB 11:26
PROVIDERS: Radiology Diagnostic Radiology; PCP Family Medicine; Visit Provider Internal Medicine Gastroenterology
PROC: (CPT 49082; principal; 2025-05-30 12:30)
DX: R18.8 Other ascites (principal)
CPT/HCPCS: 49083; 80503; 87070; 87075; 87205; 89050; P9046

== ENCOUNTER → 2025-06-03 11:12 | Day surgery (SDC) | payer OTHER, SELFPAY ==
[2025-06-03 11:32] VITALS: BP 113/56; PULSE 80; RESP 16; TEMP 36.6; O2SAT 93
--- NOTE | 2025-06-03 11:46 | US_ITS ---
WS: [email or web address] ULTRASOUND ABDOMEN LIMITED CLINICAL INFORMATION: ascites COMPARISON: None. FINDINGS: Mild ascites visualized today, probably less than 3 L. Patient preferred to wait till next appointment on this coming for drainage. US/US abdomen lmt fluid [id number] IMPRESSION: See above
--- NOTE | 2025-06-03 12:49 | PC.NURSE ---
Patient states that if we will most likely not get out more than 3L he would like to wait until . Dr Jaquez discussed with patient and the decision to wait until was made.
== END ==
LOC: GILAB 11:14
PROVIDERS: Radiology Neuroradiology; PCP Family Medicine; Visit Provider Internal Medicine Gastroenterology
DX: R18.8 Other ascites (principal)
CPT/HCPCS: 49083; 76705

== ENCOUNTER 2025-06-06 11:27 | Day surgery (SDC) | payer OTHER, SELFPAY ==
--- NOTE | 2025-06-06 11:32 | US_ITS ---
WS: [email or web address] ULTRASOUND-GUIDED PARACENTESIS CLINICAL INFORMATION: ascites COMPARISON: None. Procedure Informed consent: The risks, benefits, and alternatives of the procedure were discussed with the patient. Verbal and written consent was obtained. Timeout: A timeout was performed to confirm the correct patient, procedure, and site. Preparation: A suitable skin site was identified. The patient was prepped and draped in usual sterile fashion. Lidocaine 1% was used for local anesthesia. Catheter: 4 Italian One-step Yueh catheter. Side: LEFT lower quadrant. Fluid Volume: 6500 ml Color: Clear yellow DISPOSITION: Discarded safely. Complications: None. Patient disposition: Discharged from the department in stable condition. US/US paracentesis abd w [id number] IMPRESSION: Uncomplicated ultrasound-guided paracentesis. Removal of 6500 cc
[2025-06-06 11:41] VITALS: BP 106/58; PULSE 70; RESP 18; TEMP 36.6; O2SAT 99; BMI 25.0
[2025-06-06 12:26] LABS: Cyto Order Verification No Order
[2025-06-06 12:27] LABS: Appearance, Peritoneal Fluid Cloudy (Clear); Color, Peritoneal Fluid Pale Yellow (Pale Yellow); Pathology Referral Yes
[2025-06-06 12:34] LABS: Mononuclear #, Pertinoneal Fl 0.030 10^3/uL; Mononuclear %, Pertinoneal Fl 93.800 %; Polynuclear # Cells, Perit 0.002 10^3/uL; Polynuclear % Cells,Perit 6.200 %; RBC Pertioneal Fluid 0 10^3/uL; WBC Peritoneal Fluid 32 /uL
[2025-06-06] MEDS: albumin 37.5 GM/150 ML VIAL IV (12:40)
== END 2025-06-06 13:07 | disposition home or self-care (01) ==
LOC: GILAB 11:28
PROVIDERS: Radiology Neuroradiology; PCP Family Medicine; Visit Provider Internal Medicine Gastroenterology
PROC: (CPT 49082; principal; 2025-06-06 12:00)
DX: R18.8 Other ascites (principal)
CPT/HCPCS: 49083; 80503; 87070; 87075; 87205; 89050; 96365; P9047

== ENCOUNTER → 2025-06-10 11:12 | Day surgery (SDC) | payer OTHER, SELFPAY ==
[2025-06-10 11:26] VITALS: BP 133/72; PULSE 62; RESP 18; TEMP 36.2; O2SAT 97
[2025-06-10 11:34] VITALS: BMI 25.0
--- NOTE | 2025-06-10 11:38 | US_ITS ---
WS: [email or web address] ULTRASOUND-GUIDED THERAPEUTIC AND DIAGNOSTIC PARACENTESIS Procedure, risks, and complications have been explained to the patient. Consent is obtained. Utilizing aseptic technique and 1% buffered lidocaine, a small dermatome was made through which a 5 [place] Yueh catheter was inserted. Approximately 7500 ml of clear peritoneal fluid was obtained without difficulty. No complications encountered. US/US paracentesis abd w [id number] IMPRESSION: Uncomplicated paracentesis yielding 7500 ml of peritoneal fluid.
== END ==
LOC: GILAB 11:13
PROVIDERS: Radiology Diagnostic Radiology; PCP Family Medicine; Visit Provider Internal Medicine Gastroenterology
PROC: (CPT 49082; principal; 2025-06-10 13:00)
DX: R18.8 Other ascites (principal)
CPT/HCPCS: 49083; 87070; 87075; 87205; 89051; 96365; P9047

== ENCOUNTER 2025-06-20 11:16 | Day surgery (SDC) | payer OTHER, SELFPAY ==
[2025-06-20 11:25] VITALS: BP 126/67; PULSE 78; RESP 18; TEMP 36.3; O2SAT 98
--- NOTE | 2025-06-20 11:27 | US_ITS ---
WS: [email or web address] ULTRASOUND-GUIDED PARACENTESIS CLINICAL INFORMATION: ASCITES COMPARISON: None. Procedure Informed consent: The risks, benefits, and alternatives of the procedure were discussed with the patient. Verbal and written consent was obtained. Timeout: A timeout was performed to confirm the correct patient, procedure, and site. Preparation: A suitable skin site was identified. The patient was prepped and draped in usual sterile fashion. Lidocaine 1% was used for local anesthesia. Catheter: 4 Macedonian One-step Yueh catheter. Side: LEFT lower quadrant. Fluid Volume: 6400 ml Color: Clear yellow DISPOSITION: Discarded safely. Complications: None. Patient disposition: Discharged from the department in stable condition. US/US paracentesis abd w [id number] IMPRESSION: Uncomplicated ultrasound-guided paracentesis. Removal of 6400 cc
[2025-06-20 11:35] VITALS: BMI 25.0
[2025-06-20 12:27] LABS: Mononuclear #, Pertinoneal Fl 0.044 10^3/uL; Mononuclear %, Pertinoneal Fl 95.600 %; Polynuclear # Cells, Perit 0.002 10^3/uL; Polynuclear % Cells,Perit 4.400 %; RBC Pertioneal Fluid 0 10^3/uL; WBC Peritoneal Fluid 46 /uL
[2025-06-20 12:28] LABS: Cyto Order Verification No Order
[2025-06-20 12:29] LABS: Appearance, Peritoneal Fluid Cloudy (Clear); Color, Peritoneal Fluid Pale Yellow (Pale Yellow); Pathology Referral Yes
[2025-06-20 12:53] VITALS: BP 106/51; PULSE 79; RESP 16; O2SAT 97
[2025-06-20] MEDS: albumin 37.5 GM/150 ML VIAL IV (13:10)
== END 2025-06-20 13:40 | disposition home or self-care (01) ==
LOC: GILAB 11:16
PROVIDERS: Radiology Neuroradiology; PCP Family Medicine; Visit Provider Internal Medicine Gastroenterology
PROC: (CPT 49082; principal; 2025-06-20 12:30)
DX: R18.8 Other ascites (principal)
CPT/HCPCS: 49083; 80503; 87070; 87075; 87205; 89050; 96365; P9047

== ENCOUNTER 2025-06-24 11:03 | Day surgery (SDC) | payer OTHER, SELFPAY ==
[2025-06-24 11:34] VITALS: BP 107/53; PULSE 68; RESP 18; TEMP 36.4; O2SAT 97
[2025-06-24 11:35] VITALS: BMI 25.0
--- NOTE | 2025-06-24 11:36 | US_ITS ---
WS: [email or web address] ULTRASOUND-GUIDED THERAPEUTIC AND DIAGNOSTIC PARACENTESIS Procedure, risks, and complications have been explained to the patient. Consent is obtained. Utilizing aseptic technique and 1% buffered lidocaine, a small dermatome was made through which a 5 Polish Yueh catheter was inserted. Approximately 4250 ml of clear peritoneal fluid was obtained without difficulty. No complications encountered. US/US paracentesis abd w [id number] IMPRESSION: Uncomplicated paracentesis yielding 4250 ml of peritoneal fluid.
[2025-06-24 12:52] LABS: Mononuclear #, Pertinoneal Fl 0.058 10^3/uL; Mononuclear %, Pertinoneal Fl 96.700 %; Polynuclear # Cells, Perit 0.002 10^3/uL; Polynuclear % Cells,Perit 3.300 %; RBC Pertioneal Fluid 1 10^3/uL; WBC Peritoneal Fluid 60 /uL
[2025-06-24 12:54] LABS: Appearance, Peritoneal Fluid Turbid (Clear); Color, Peritoneal Fluid Pale Yellow (Pale Yellow); Pathology Referral Yes
[2025-06-24 12:55] LABS: Cyto Order Verification No Order
== END 2025-06-24 13:05 | disposition home or self-care (01) ==
LOC: GILAB 11:03
PROVIDERS: Radiology Diagnostic Radiology; PCP Family Medicine; Visit Provider Internal Medicine Gastroenterology
PROC: (CPT 49082; principal; 2025-06-24 12:30)
DX: R18.8 Other ascites (principal)
CPT/HCPCS: 49083; 80503; 87070; 87075; 87205; 89050; 96365; P9047

== ENCOUNTER 2025-06-27 11:14 | Day surgery (SDC) | payer OTHER, SELFPAY ==
--- NOTE | 2025-06-27 11:17 | US_ITS ---
WS: [email or web address] ULTRASOUND-GUIDED THERAPEUTIC AND DIAGNOSTIC PARACENTESIS Procedure, risks, and complications have been explained to the patient. Consent is obtained. Utilizing aseptic technique and 1% buffered lidocaine, a small dermatome was made through which a 5 [place] Yueh catheter was inserted. Approximately 4250 ml of clear peritoneal fluid was obtained without difficulty. No complications encountered. US/US paracentesis abd w [id number] IMPRESSION: Uncomplicated paracentesis yielding 4250 ml of peritoneal fluid.
[2025-06-27 11:44] VITALS: BP 145/70; PULSE 94; RESP 18; TEMP 37.3; O2SAT 100; BMI 25.0
[2025-06-27 12:31] LABS: Cyto Order Verification No Order
[2025-06-27 12:32] LABS: Appearance, Peritoneal Fluid Turbid (Clear); Color, Peritoneal Fluid Pale Yellow (Pale Yellow); Pathology Referral Yes
[2025-06-27 12:39] VITALS: BP 154/74; PULSE 92; RESP 18; O2SAT 100
[2025-06-27 12:39] LABS: Mononuclear #, Pertinoneal Fl 0.056 10^3/uL; Mononuclear %, Pertinoneal Fl 96.500 %; Polynuclear # Cells, Perit 0.002 10^3/uL; Polynuclear % Cells,Perit 3.500 %; RBC Pertioneal Fluid 1 10^3/uL; WBC Peritoneal Fluid 58 /uL
== END 2025-06-27 12:52 | disposition home or self-care (01) ==
LOC: GILAB 11:16
PROVIDERS: Radiology Diagnostic Radiology; PCP Family Medicine; Visit Provider Internal Medicine Gastroenterology
PROC: (CPT 49082; principal; 2025-06-27 12:00)
DX: R18.8 Other ascites (principal)
CPT/HCPCS: 49083; 80503; 87070; 87075; 87205; 89050; 96365; P9047

== ENCOUNTER 2025-07-01 11:08 | Day surgery (SDC) | payer OTHER, SELFPAY ==
--- NOTE | 2025-07-01 11:31 | US_ITS ---
WS: [email or web address] ULTRASOUND-GUIDED PARACENTESIS CLINICAL INFORMATION: ascites Procedure Informed consent: The risks, benefits, and alternatives of the procedure were discussed with the patient. Verbal and written consent was obtained. Timeout: A timeout was performed to confirm the correct patient, procedure, and site. Preparation: A suitable skin site was identified. The patient was prepped and draped in usual sterile fashion. Lidocaine 1% was used for local anesthesia. Catheter: 4 Kinyarwanda One-step Yueh catheter. Side: LEFT lower quadrant. Fluid Volume: 5450 ml Color: Clear yellow DISPOSITION: Discarded safely. Complications: None. Patient disposition: Discharged from the department in stable condition. US/US paracentesis abd w [id number] IMPRESSION: Uncomplicated ultrasound-guided paracentesis. Removal of 5450 cc
[2025-07-01 11:32] VITALS: BP 134/73; PULSE 95; RESP 18; TEMP 36.8; O2SAT 99; BMI 25.8
[2025-07-01] MEDS: albumin 25 G/100 ML BAG 250 G IV (12:33)
[2025-07-01 12:38] LABS: Cyto Order Verification No Order
[2025-07-01 12:41] LABS: Appearance, Peritoneal Fluid Cloudy (Clear); Color, Peritoneal Fluid Pale Yellow (Pale Yellow)
[2025-07-01 12:42] LABS: Pathology Referral Yes
[2025-07-01 12:43] LABS: Mononuclear #, Pertinoneal Fl 0.038 10^3/uL; Mononuclear %, Pertinoneal Fl 95.000 %; Polynuclear # Cells, Perit 0.002 10^3/uL; Polynuclear % Cells,Perit 5.000 %; RBC Pertioneal Fluid 1 10^3/uL; WBC Peritoneal Fluid 40 /uL
== END 2025-07-01 13:00 | disposition home or self-care (01) ==
LOC: GILAB 11:09
PROVIDERS: Radiology Neuroradiology; PCP Family Medicine; Visit Provider Internal Medicine Gastroenterology
PROC: (CPT 49082; principal; 2025-07-01 13:00)
DX: R18.8 Other ascites (principal)
CPT/HCPCS: 49083; 80503; 87070; 87075; 87205; 89050; 96365; P9046